=== PATIENT | female | born 1955 | race Native Hawaiian/Other Pacific Islander ===

== ENCOUNTER 2017-01-25 05:46 | Outpatient (CLI) | payer OTHER | END 2017-01-25 05:58 | disposition short-term general hospital (02) | LOC: EDBD 05:46 → AMB 05:46 | DX: R07.89 Other chest pain (principal); R42 Dizziness and giddiness | CPT/HCPCS: A0425; A0427 ==

== ENCOUNTER 2017-01-25 06:00 | Emergency (ER) | payer OTHER ==
[~2017-01-25] VITALS: Ht 142.2 cm; Wt 68.0 kg
[2017-01-25 06:11] VITALS: TEMP 97.9
[2017-01-25 06:17] LABS: PLATELET COUNT 185 K/uL (152-353)
[2017-01-25 06:36] LABS: PARTIAL THROMBOPLASTIN TIME 24.2 SECONDS (24.5-33.6)
[2017-01-25 06:57] LABS: POTASSIUM 3.7 mmol/L (3.6-5.2)
[2017-01-25 08:16] VITALS: BP 169/82
== END 2017-01-25 08:35 | disposition home or self-care (01) ==
LOC: EDBD 06:00 → ED 06:00
PROVIDERS: Emergency Medicine
DX: R42 Dizziness and giddiness (principal); K44.9 Diaphragmatic hernia without obstruction or gangrene; K21.9 Gastro-esophageal reflux disease without esophagitis
CPT/HCPCS: 80053; 82550; 83880; 84484; 85027; 85610; 85730; 93005; 99284

== ENCOUNTER 2017-02-04 21:57 | Emergency (ER) | payer OTHER ==
[~2017-02-04] VITALS: Ht 142.2 cm; Wt 72.6 kg
[2017-02-05 01:25] VITALS: BP 148/70; TEMP 98.5
== END 2017-02-05 01:25 | disposition home or self-care (01) ==
LOC: ED 21:57 → EDBD 21:57 → ED 02-05 01:25
DX: M25.851 Other specified joint disorders, right hip (principal); M25.551 Pain in right hip
CPT/HCPCS: 96372; 99283; J1885

== ENCOUNTER 2017-04-20 10:56 | Outpatient (CLI) | payer OTHER | END 2017-04-20 12:00 | disposition home or self-care (01) | LOC: RAD 10:56 | DX: M25.511 Pain in right shoulder (principal) ==

== ENCOUNTER 2017-09-11 15:21 | Outpatient (CLI) | payer OTHER | END 2017-09-11 19:19 | disposition home or self-care (01) | LOC: RAD 15:21 | DX: M54.17 Radiculopathy, lumbosacral region (principal) ==

== ENCOUNTER 2018-06-04 17:03 | Outpatient (CLI) | payer OTHER | END 2018-06-04 20:38 | disposition home or self-care (01) | LOC: RAD 17:03 | DX: M25.561 Pain in right knee (principal) ==

== ENCOUNTER 2019-05-22 12:28 | Outpatient (CLI) | payer OTHER ==
[2019-05-22 13:11] LABS: POTASSIUM 4.2 mmol/L (3.6-5.2); SODIUM 142 mmol/L (136-145)
== END 2019-05-22 23:27 | disposition home or self-care (01) ==
LOC: LABW 12:28
PROVIDERS: Family Medicine
DX: R07.89 Other chest pain (principal)
CPT/HCPCS: 80053; 82550; 84484

== ENCOUNTER 2019-06-05 20:56 | Emergency (ER) | payer OTHER ==
[~2019-06-05] VITALS: Ht 144.8 cm; Wt 72.6 kg
[2019-06-05 21:39] VITALS: BP 121/76; TEMP 97.8
== END 2019-06-05 21:42 | disposition home or self-care (01) ==
LOC: ED 20:56
DX: L23.7 Allergic contact dermatitis due to plants, except food (principal)
CPT/HCPCS: 96372; 99283; J1200; J2930

== ENCOUNTER 2019-06-16 14:08 | Emergency (ER) | payer OTHER ==
[~2019-06-16] VITALS: Ht 144.8 cm; Wt 72.6 kg
[2019-06-16 14:15] VITALS: TEMP 98.1
[2019-06-16 15:28] LABS: PLATELET COUNT 203 K/uL (152-353)
[2019-06-16 15:38] LABS: POTASSIUM 4.2 mmol/L (3.6-5.2); SODIUM 140 mmol/L (136-145)
[2019-06-16 15:42] LABS: PARTIAL THROMBOPLASTIN TIME 24.2 SECONDS (24.5-33.6)
[2019-06-16 16:58] VITALS: BP 162/69
== END 2019-06-16 17:00 | disposition home or self-care (01) ==
LOC: ED 14:08
PROVIDERS: Hospitalist
DX: R22.0 Localized swelling, mass and lump, head (principal); R07.89 Other chest pain
CPT/HCPCS: 80053; 85027; 85610; 85730; 96372; 99283; J0696; J1200; J2930

== ENCOUNTER 2019-08-05 13:10 | Outpatient (CLI) | payer OTHER ==
[2019-08-05 13:49] LABS: PLATELET COUNT 192 K/uL (152-353)
[2019-08-05 14:26] LABS: POTASSIUM 3.9 mmol/L (3.6-5.2)
[2019-08-05] MEDS ORDERED: ATEN50TA36 PO (21:17)
[2019-08-05] MEDS ORDERED: LIPITOR10 MG PO (21:17)
[2019-08-05] MEDS ORDERED: LISI10TA11 PO (21:17)
== END 2019-08-05 23:12 | disposition home or self-care (01) ==
LOC: LABW 13:10
PROVIDERS: Specialist
DX: Z01.810 Encounter for preprocedural cardiovascular examination (principal); R93.1 Abnormal findings on diagnostic imaging of heart and coronary circulation
CPT/HCPCS: 36415; 80053; 85027

== ENCOUNTER 2019-08-05 21:05 | Emergency (ER) | payer OTHER ==
[~2019-08-05] VITALS: Ht 144.8 cm; Wt 72.6 kg
[2019-08-05] MEDS ORDERED: LISI10TA11 PO (21:17)
[2019-08-05] MEDS ORDERED: ATEN50TA36 PO (21:17)
[2019-08-05] MEDS ORDERED: LIPITOR10 MG PO (21:17)
[2019-08-05 21:56] VITALS: BP 174/72; TEMP 97.7
== END 2019-08-05 21:56 | disposition home or self-care (01) ==
LOC: ED 21:05
DX: T21.12XA Burn of first degree of abdominal wall, initial encounter (principal); T31.0 Burns involving less than 10% of body surface; X10.1XXA Contact with hot food, initial encounter; Y92.89 Other specified places as the place of occurrence of the external cause
CPT/HCPCS: 99282

== ENCOUNTER 2023-03-07 12:29 | Outpatient (CLI) | payer OTHER ==
[~2023-03-07 12:29] MED LIST: ATEN50TA36 PO; LIPITOR10 MG PO; LISI10TA11 PO; TRIAMCINOLON0.12 TOP; [UNRECOGNIZED DRUG - CODE] EX
== END 2023-03-07 19:00 | disposition home or self-care (01) ==
LOC: RAD 12:29
PROVIDERS: ATTEND Nurse Practitioner Family
DX: M54.17 Radiculopathy, lumbosacral region (principal)

== ENCOUNTER 2023-04-14 09:50 | Outpatient (CLI) | payer OTHER | END 2023-04-14 18:58 | disposition home or self-care (01) | LOC: MRI 09:50 | PROVIDERS: ATTEND Nurse Practitioner Family | DX: M47.896 Other spondylosis, lumbar region (principal) ==